=== PATIENT | female | born 1960 | race Hispanic/Latino ===

== ENCOUNTER → 2017-11-26 | Outpatient (CLI) | payer OTHER ==
[~2017-11-26] MED LIST: IOPAMIDOL 370 MG/ML 200 ML INFUS..BTL INJ ONE; LOSARTAN POTASS50 MG PO; MOTRIN200 MG PO; SODIUM CHLORIDE 0.9% 50ML 50 ML ONE; ULTRAM 50MG50 MG PO
[2017-11-26 09:38] LABS: BLOOD UREA NITROGEN 12 mg/dL (7-26); BUN/CREATININE RATIO 16 (6-25); CREATININE, SERUM 0.73 mg/dL (0.57-1.11); EST GLOMERULAR FILTRATION RATE > 60 ML/MIN (60-)
--- NOTE | 2017-11-26 10:33 | Diagnostic Imaging Report ---
PROCEDURE: CT ABDOMEN \T\ PELVIS W/WO CONTRAST TECHNIQUE: The abdomen and pelvis were scanned utilizing a multidetector helical scanner from the diaphragm to the lesser trochanter before and after the IV administration of 100 cc Isovue 370 and the oral administration of water. Coronal and sagittal multiplanar reformations were obtained. Renal mass protocol was performed. COMPARISON: The report from an intravenous pyelogram performed at an outside facility was available for review. No images are included.. INDICATIONS: RENAL MASS FINDINGS: LOWER THORAX: Normal. HEPATOBILIARY: No focal hepatic lesions or intrahepatic biliary ductal dilatation. Small phrygian cap at the gallbladder fundus. The gallbladder is otherwise unremarkable. SPLEEN: No splenomegaly. Small splenule in the inferior aspect of the hilum. PANCREAS: No focal mass or pancreatic ductal dilatation. ADRENALS: No adrenal nodules. KIDNEYS/URETERS: Pre-contrast, arterial phase, venous phase, and excretory phase images shows no solid or cystic renal mass lesion. No calculi or hydronephrosis. Excretory phase images show no filling defects within the upper collecting systems, ureters, or urinary bladder. PELVIC ORGANS/BLADDER: The urinary bladder is unremarkable. The uterus is not identified and has presumably been removed. No adnexal mass. PERITONEUM / RETROPERITONEUM: No ascites or pneumoperitoneum. LYMPH NODES: No pelvic sidewall, retroperitoneal, or mesenteric lymphadenopathy. VESSELS: Atherosclerotic calcification of the abdominal aorta, major branch vessels, and iliac arterial systems without significant stenosis. 7 mm peripherally calcified partially thrombosed aneurysm of the distal main splenic artery seen on series 4 image 18. GI TRACT: The large bowel shows no evidence of distention or wall thickening. The appendix is normal. There is no small bowel dilatation to suggest obstruction. 3.4 cm diverticulum projects from the third portion of the duodenum. BONES AND SOFT TISSUES: No focal soft tissue abnormalities. No osseous destructive lesions. Mild degenerative disc changes at multiple levels of the lumbar spine. Large Schmorl node in the superior endplate of L2. IMPRESSION: No renal mass lesion is identified to correspond to the abnormality described on the report from the comparison intravenous pyelogram. 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 CT angiogram of the abdomen may be performed in one year to assess for stability. Dictated by: Goyo Jarrell M.D. on 11/26/2017 at 10:35 Electronically approved by: Goyo Jarrell M.D. on 11/26/2017 at 10:35
== END ==
LOC: CT 08:39
PROVIDERS: ATTEND Urology
DX: D41.00 Neoplasm of uncertain behavior of unspecified kidney (principal)
CPT/HCPCS: 36415; 74178; 82565; 84520; Q9967